=== PATIENT | female | born 1990 | race Caucasian/White ===

== ENCOUNTER 2019-10-02 11:29 | Emergency (ER) | payer SELFPAY ==
[2019-10-02 12:37] LABS: Urine Blood 2+ (NEG); Urine Glucose NEGATIVE (NEG); Urine Protein 1+ (NEG); Urine pH 6.5 (5.0-7.0)
[2019-10-02 12:40] LABS: Absolute Lymphocytes (CBC) 1.6 K/uL (0.7-4.9); Basophils % 0.5 % (0-1.3); Hematocrit 39.4 % (36.0-45.0); Lymphocytes % 16.4 % (15.3-44.8); MPV 7.7 fL (7.6-11.3); RBC Red Blood Cell Count 4.54 M/uL (3.86-4.86)
[2019-10-02] MEDS ORDERED: NA CHLORIDE 0.9% 1,000 ML ONE (12:40)
[2019-10-02] MEDS ORDERED: ONDANSETRON 4 MG/2 ML VIAL ONE (12:40)
[2019-10-02] MEDS ORDERED: KETOROLAC 30 MG/ML INJ ONE (12:40)
[2019-10-02 12:44] LABS: Urine Bacteria 20-50 /HPF (<20); Urine Culture Reflex Order REFLEXED
--- NOTE | 2019-10-02 12:59 | RAD REPORT ---
EXAM DESCRIPTION: CT - Stone Protocol - 10/02/2019 12:47 pm CLINICAL HISTORY: Abdominal pain. COMPARISON: None. TECHNIQUE: Computed axial tomography of the abdomen pelvis was obtained without oral or IV contrast. Lack of IV and oral contrast limits evaluation of solid organs, bowel, and vessels. Coronal reformat amrit images were obtained and reviewed. All CT scans are performed using dose optimization technique as appropriate and may include automated exposure control or mA/KV adjustment according to patient size. FINDINGS: Small bilateral renal calculi. Moderate right hydronephrosis. 6 millimeter calculus mid ri ght ureter Hounsfield unit 1461 No left hydronephrosis The liver, spleen, pancreas and adrenals appear grossly normal There is no evidence of diverticulitis. IMPRESSION: 6 millimeter calculus mid right ureter resulting in moderate left hydronephrosis
[2019-10-02 13:06] LABS: Albumin 4.3 g/dL (3.4-5.0); Bilirubin Direct 0.1 mg/dL (0-0.2); Bilirubin Total 0.4 mg/dL (0.2-1.0); Potassium 3.9 mmol/L (3.5-5.1)
--- NOTE | 2019-10-02 13:58 | EDPHYS ---
Physician Documentation [facility] Name: Janine Patrick Age: 29 yrs Sex: Female : 1990 Arrival Date: 10/02/2019 Time: 11:30 Bed 30 Private MD: ED Physician Luis Armando Briggs HPI: 10/02 12:10 This 29 yrs old Female presents to ER via Ambulatory with complaints of cp Possible Kidney Stone. 12:10 The patient complains of pain in the right flank. cp 12:10 The pain radiates to the right side abdomen. Onset: The symptoms/episode began/occurred cp this morning. Associated signs and symptoms: Pertinent positives: nausea, Pertinent negatives: diarrhea, fever, pain radiating to the lower extremities, vomiting. The patient has experienced similar episodes in the past, today's symptoms are similar, to when the patient was apparently diagnosed with kidney stone. 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 - Coronavirus screen:: The patient has NOT traveled to [place], [place], or [place] in the past 14 days. The patient has NOT had contact with known/suspected case of Coronavirus?. - Social history:: Smoking status: Patient denies any tobacco usage or history of. Patient/guardian denies using alcohol, street drugs. - Ebola Screening: : Patient negative for fever greater than or equal to 101.5 degrees Fahrenheit, and additional compatible Ebola Virus Disease symptoms Patient denies exposure to infectious person Patient denies travel to an Ebola-affected area in the 21 days before illness onset No symptoms or risks identified at this time. ROS: 12:15 Constitutional: Negative for body aches, chills, fever, poor PO intake. cp 12:15 Eyes: Negative for injury, pain, redness, and discharge. cp 12:15 ENT: Negative for drainage from ear(s), ear pain, sore throat, difficulty swallowing, difficulty handling secretions. 12:15 Cardiovascular: Negative for chest pain, palpitations. 12:15 Respiratory: Negative for cough, shortness of breath, wheezing. 12:15 Abdomen/GI: Positive for abdominal pain, nausea, Negative for vomiting, diarrhea, constipation. 12:15 Back: Positive for flank pain, on the right. 12:15 All other systems are negative. Exam: 12:20 Constitutional: The patient appears in no acute distress, alert, awake, non-toxic, well cp developed, well nourished, uncomfortable. 12:20 Head/Face: Normocephalic, atraumatic. cp 12:20 Eyes: Periorbital structures: appear normal, Conjunctiva: normal, no exudate, no injection, Sclera: no appreciated abnormality, Lids and lashes: appear normal, bilaterally. 12:20 ENT: External ear(s): are unremarkable, Nose: is normal, Mouth: Lips: moist, Oral mucosa: moist, Posterior pharynx: Airway: no evidence of obstruction, patent. 12:20 Chest/axilla: Inspection: normal, Palpation: is normal, no crepitus, no tenderness. 12:20 Cardiovascular: Rate: normal, Rhythm: regular. 12:20 Respiratory: the patient does not display signs of respiratory distress, Respirations: normal, labored breathing, is not present, Breath sounds: are clear throughout, no decreased breath sounds, no stridor, no wheezing. 12:20 Abdomen/GI: Inspection: abdomen appears normal, Bowel sounds: active, all quadrants, Palpation: soft, in all quadrants, moderate abdominal tenderness, in the posterior aspect of right lateral abdomen, anterior aspect of right lateral abdomen and right lower quadrant. 12:20 Back: pain, that is moderate, of the right low back, ROM is painful. 12:20 Skin: no rash present. Vital Signs: 11:47 BP 160 / 110; Pulse 87; Resp 16; Temp 98.6; Pulse Ox 99% on R/A; Weight 61.23 kg; ch Height 5 ft. (152.40 cm); Pain 8/10; 12:15 BP 130 / 84; Pulse 82; Resp 18; Pulse Ox 100% on R/A; vc 13:15 BP 146 / 111; Pulse 78; Resp 15; Pulse Ox 100% ; vc 15:00 BP 132 / 94; Pulse 78; Resp 15; Pulse Ox 100% ; Pain 0/10; vc 11:47 Body Mass Index 26.37 (61.23 kg, 152.40 cm) ch MDM: 12:09 Patient medically screened. 13:56 Data reviewed: vital signs, nurses notes, lab test result(s), radiologic studies, CT cp scan. 13:56 Counseling: I had a detailed discussion with the patient and/or guardian regarding: the cp historical points, exam findings, and any diagnostic results supporting the discharge/admit diagnosis, lab results, radiology results, the need for outpatient follow up, a urologist, to return to the emergency department if symptoms worsen or persist or if there are any questions or concerns that arise at home. Response to treatment: the patient's symptoms have markedly improved after treatment, VSS. Pain improved with meds. Will discharge to home for continued monitoring. 10/02 12:03 Order name: Urine Dipstick--Ancillary (enter results) 10/02 12:03 Order name: Urine --Ancillary (enter results) 10/02 12:11 Order name: Basic Metabolic Panel 10/02 12:11 Order name: CBC with Diff 10/02 12:11 Order name: Creatinine for Radiology 10/02 12:11 Order name: Hepatic Function cp 10/02 12:11 Order name: Lipase 10/02 12:11 Order name: Urine Microscopic Only 10/02 12:37 Order name: Urine --Ancillary; Complete Time: 13:19 EDMS 10/02 12:37 Order name: Urine Dipstick-Ancillary; Complete Time: 13:19 EDMS 10/02 13:19 Interpretation: Normal except: UBLD 2+; UPROT 1+. 10/02 12:43 Order name: CBC with Automated Diff; Complete Time: 13:19 EDMS 10/02 12:44 Order name: Urine Microscopic Only; Complete Time: 13:19 EDMS 10/02 13:20 Interpretation: Normal except: URBC 5-10; UBACT 20-50; SQEPI 10-20. 10/02 13:07 Order name: Basic Metabolic Panel; Complete Time: 13:19 EDMS 10/02 13:07 Order name: Liver (Hepatic) Function; Complete Time: 13:19 EDMS 10/02 12:11 Order name: IV Saline Lock; Complete Time: 12:31 cp 10/02 12:11 Order name: Labs collected and sent; Complete Time: 12:31 10/02 12:11 Order name: CT Stone Protocol 10/02 13:03 Order name: CT; Complete Time: 13:19 EDMS 10/02 13:07 Order name: Lipase; Complete Time: 13:19 EDMS 10/02 13:12 Order name: Creatinine (Radiology Only); Complete Time: 13:19 EDMS Administered Medications: 12:43 Drug: NS 0.9% 1000 ml Route: IV; Rate: 1 bolus; Site: right antecubital; vc 12:43 Drug: Zofran 4 mg Route: IVP; Site: right antecubital; vc 13:43 Follow up: Response: No adverse reaction; Nausea is decreased vc 12:43 Drug: TORadol - Ketorolac 15 mg Route: IVP; Site: right antecubital; vc 13:43 Follow up: Response: No adverse reaction; Pain is decreased vc 14:42 Drug: Rocephin 1 grams Route: IV; Rate: calculated rate; Site: left antecubital; vc 14:50 Follow up: Response: No adverse reaction; IV Status: Completed infusion vc 14:51 Drug: Magnesium Sulfate 1 grams Route: IVPB; Infused Over: 1 hrs; Site: right vc antecubital; 15:50 Follow up: IV Status: Completed infusion vc 14:52 Drug: Flomax 0.4 mg Route: PO; vc 15:57 Follow up: Response: No adverse reaction vc Disposition: 17:57 Co-signature as Attending Physician, Luis Armando Briggs MD I agree with the assessment and kdr plan of care. Disposition: 10/02/19 13:57 Discharged to Home. Impression: Calculus of ureter - right. - Condition is Stable. - Discharge Instructions: Kidney Stones, Renal Colic. - Prescriptions for Tylenol- Codeine #3 300-30 mg Oral Tablet - take 2 tablets by ORAL route every 6 hours As needed; 20 tablet. Zofran 4 mg Oral Tablet - take 1 tablet by ORAL route every 12 hours As needed; 20 tablet. Flomax 0.4 mg Oral Capsule, Sust. Release 24 hr - take 1 capsule by ORAL route once daily As needed 1/2 hour following the same meal each day; 5 capsule. Cipro 500 mg Oral Tablet - take 1 tablet by ORAL route every 12 hours for 7 days; 14 tablet. - Medication Reconciliation Form, Thank You Letter, Antibiotic Education, Prescription Opioid Use, Work release form form. - Follow up: Robby Montemayor MD; When: 1 - 2 days; Reason: pain and symptoms continue. Follow up: Robby Montemayor MD; When: 1 - 2 days; Reason: pain and symptoms continue. - Problem is new. - Symptoms have improved. Signatures: Dispatcher [employer] EDMS Ana Moseley RN RN Luis Armando Briggs MD MD [facility] Mina Luis PA PA cp Mireya Penn RN RN vc Corrections: (The following items were deleted from the chart) 15:55 13:57 10/02/2019 13:57 Discharged to Home. Impression: Calculus of ureter - right. vc Condition is Stable. Forms are Medication Reconciliation Form, Thank You Letter, Antibiotic Education, Prescription Opioid Use. Follow up: Robby Montemayor; When: 1 - 2 days; Reason: pain and symptoms continue. Problem is new. Symptoms have improved. cp
--- NOTE | 2019-10-02 13:58 | ER ---
Nurse's Notes [facility] Name: Janine Patrick Age: 29 yrs Sex: Female : 1990 Arrival Date: 10/02/2019 Time: 11:30 Bed 30 Private MD: Diagnosis: Calculus of ureter-right Presentation: 10/02 11:46 Presenting complaint: Patient states: kidney stone symptoms like my others, started ch this morning. pain to R flank, nausea vomiting. Transition of care: patient was not received from another setting of care. Onset of symptoms was October 02, 2019 at 06:00. Risk Assessment: Do you want to hurt yourself or someone else? Patient reports no desire to harm self or others. Initial Sepsis Screen: Does the patient meet any 2 criteria? No. Patient's initial sepsis screen is negative. Does the patient have a suspected source of infection? No. Patient's initial sepsis screen is negative. Care prior to arrival: None. 11:46 Method Of Arrival: Ambulatory 11:46 Acuity: IMANI 3 Triage Assessment: 11:47 General: Appears Behavior is calm, cooperative, appropriate for age. Pain: Complains of pain in right flank Pain currently is 9 out of 10 on a pain scale. Neuro: No deficits noted. GI: Reports nausea, vomiting. : Reports flank pain. 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 - Coronavirus screen:: The patient has NOT traveled to [place], [place], or [place] in the past 14 days. The patient has NOT had contact with known/suspected case of Coronavirus?. - Social history:: Smoking status: Patient denies any tobacco usage or history of. Patient/guardian denies using alcohol, street drugs. - Ebola Screening: : Patient negative for fever greater than or equal to 101.5 degrees Fahrenheit, and additional compatible Ebola Virus Disease symptoms Patient denies exposure to infectious person Patient denies travel to an Ebola-affected area in the 21 days before illness onset No symptoms or risks identified at this time. Screenin:30 Abuse screen: Denies threats or abuse. Nutritional screening: No deficits noted. vc Tuberculosis screening: No symptoms or risk factors identified. Fall Risk None identified. Assessment: 11:50 GI: Bowel sounds present X 4 quads. Abd is soft and non tender. : Reports pain in vc right flank(s). 11:51 General: Appears in no apparent distress. comfortable, Behavior is calm, cooperative, vc appropriate for age. Neuro: Level of Consciousness is awake, alert, obeys commands, Oriented to person, place, time, situation. Cardiovascular: Patient's skin is warm and dry. Respiratory: Airway is patent Respiratory effort is even, unlabored. GI:. EENT: No signs and/or symptoms were reported regarding the EENT system. Derm: Skin is intact, is healthy with good turgor, Skin temperature is warm. Musculoskeletal: Circulation, motion, and sensation intact. Range of motion: intact in all extremities. 11:51 Pain: Complains of pain in back and right flank Pain currently is 8 out of 10 on a pain vc scale. Pain began suddenly. 13:00 Reassessment: Patient and/or family updated on plan of care and expected duration. Pain vc level reassessed. Patient is alert, oriented x 3, equal unlabored respirations, skin warm/dry/pink. 14:00 Reassessment: Patient is alert, oriented x 3, equal unlabored respirations, skin vc warm/dry/pink. 15:00 Reassessment: Patient denies pain at this time. Patient states feeling better. vc 15:08 Reassessment: Magnesium infusing. vc 15:30 Reassessment: Patient and/or family updated on plan of care and expected duration. Pain vc level reassessed. Patient is alert, oriented x 3, equal unlabored respirations, skin warm/dry/pink. Patient denies pain at this time. Patient states feeling better. Neuro: Level of Consciousness is awake, alert, obeys commands, Oriented to person, place, time, situation. Vital Signs: 11:47 BP 160 / 110; Pulse 87; Resp 16; Temp 98.6; Pulse Ox 99% on R/A; Weight 61.23 kg; ch Height 5 ft. (152.40 cm); Pain 8/10; 12:15 BP 130 / 84; Pulse 82; Resp 18; Pulse Ox 100% on R/A; vc 13:15 BP 146 / 111; Pulse 78; Resp 15; Pulse Ox 100% ; vc 15:00 BP 132 / 94; Pulse 78; Resp 15; Pulse Ox 100% ; Pain 0/10; vc 11:47 Body Mass Index 26.37 (61.23 kg, 152.40 cm) ED Course: 11:30 Patient arrived in ED. as 11:47 Triage completed. ch 11:47 Arm band placed on left wrist. Patient placed in an exam room, on a stretcher. ch 11:50 Mireya Penn, RN is Primary Nurse. vc 11:50 Patient has correct armband on for positive identification. vc 12:00 Mina Luis PA is PHCP. cp 12:00 Luis Armando Briggs MD is Attending Physician. cp 12:10 Urine --Ancillary (enter results) Sent. vc 12:10 Urine Dipstick--Ancillary (enter results) Sent. vc 12:34 Initial lab(s) drawn, by wi, sent to lab. Urine collected: clean catch specimen, clear, jp3 darnell colored. Inserted saline lock: 22 gauge in right antecubital area, using aseptic technique. Blood collected. Patient maintains SpO2 saturation greater than 95% on room air. 12:35 Urine Microscopic Only Sent. jp3 12:35 Basic Metabolic Panel Sent. jp3 12:35 CBC with Diff Sent. jp3 12:35 Creatinine for Radiology Sent. jp3 12:35 Hepatic Function Sent. jp3 12:35 Lipase Sent. jp3 13:56 Robby Montemayor MD is Referral Physician. cp 13:56 Referral Physician role handed off by Robby Montemayor MD cp 13:57 Robby Montemayor MD is Referral Physician. cp 15:28 No provider procedures requiring assistance completed. vc 15:55 IV discontinued, intact, bleeding controlled, No redness/swelling at site. Pressure vc dressing applied. 16:00 CT Stone Protocol Sent. vc Administered Medications: 12:43 Drug: NS 0.9% 1000 ml Route: IV; Rate: 1 bolus; Site: right antecubital; vc 12:43 Drug: Zofran 4 mg Route: IVP; Site: right antecubital; vc 13:43 Follow up: Response: No adverse reaction; Nausea is decreased vc 12:43 Drug: TORadol - Ketorolac 15 mg Route: IVP; Site: right antecubital; vc 13:43 Follow up: Response: No adverse reaction; Pain is decreased vc 14:42 Drug: Rocephin 1 grams Route: IV; Rate: calculated rate; Site: left antecubital; vc 14:50 Follow up: Response: No adverse reaction; IV Status: Completed infusion vc 14:51 Drug: Magnesium Sulfate 1 grams Route: IVPB; Infused Over: 1 hrs; Site: right vc antecubital; 15:50 Follow up: IV Status: Completed infusion vc 14:52 Drug: Flomax 0.4 mg Route: PO; vc 15:57 Follow up: Response: No adverse reaction vc Outcome: 13:57 Discharge ordered by . cp 15:54 Discharged to home ambulatory. vc 15:54 Condition: improved 15:54 Discharge instructions given to patient, Instructed on discharge instructions, follow up and referral plans. no driving heavy equipment, medication usage, Demonstrated understanding of instructions, follow-up care, medications, Prescriptions given X 4. 15:55 Patient left the ED. vc Signatures: Ana Moseley, RN RN Linnette Huynh Corey, PA PA cp Pisarski, Jacob jp3 Mireya Penn RN RN vc
[2019-10-02] MEDS ORDERED: CEFTRIAXONE/SWI 1gm 1 GM/10 ML SYR ONE (14:39)
[2019-10-02] MEDS ORDERED: TAMSULOSIN 0.4 MG SR CAP ONE (14:39)
[2019-10-02] MEDS ORDERED: MAGNESIUM SULFATE 1 gm IVPB 1 GM/100 ML BAG IV ONE (14:39)
[2019-10-02 16:03] VITALS: TEMP 98.6
[2019-10-02 16:04] VITALS: O2SAT 100
[2019-10-02 16:06] VITALS: BP 146/111
== END 2019-10-02 15:55 | disposition home or self-care (01) ==
LOC: ER 11:29
DX: N20.1 Calculus of ureter (principal); Z87.442 Personal history of urinary calculi
CPT/HCPCS: 36415; 74176; 76377; 80048; 80076; 81003; 81015; 81025; 83690; 85025; 87086; 87088; 96365; 96375; 99284; J0696; J2405; J3475; J7030

== ENCOUNTER 2019-10-04 20:49 | Emergency (ER) | payer SELFPAY ==
[2019-10-04] MEDS ORDERED: KETOROLAC 30 MG/ML INJ ONE (21:36)
[2019-10-04 21:43] LABS: Urine Blood TRACE (NEG); Urine Glucose NEGATIVE (NEG); Urine Protein NEGATIVE (NEG); Urine pH 7.5 (5.0-7.0)
[2019-10-04 21:49] LABS: Urine Bacteria <20 /HPF (<20); Urine Culture Reflex Order NOT NEEDED
[2019-10-04 22:10] LABS: ALT/SGPT 23 U/L (12-78); AST/SGOT 15 U/L (15-37); Albumin 3.8 g/dL (3.4-5.0); Alkaline Phosphatase 45 U/L (45-117); BUN Blood Urea Nitrogen 7 mg/dL (7-18); Bicarbonate 26 mmol/L (21-32); Bilirubin Direct < 0.1 mg/dL (0-0.2); Bilirubin Total 0.2 mg/dL (0.2-1.0); Glucose Level 105 mg/dL (74-106); Lipase 71 U/L (73-393); Potassium 3.6 mmol/L (3.5-5.1); Protein, Total 7.4 g/dL (6.4-8.2); Sodium Level 140 mmol/L (136-145)
[2019-10-04 22:15] LABS: Absolute Lymphocytes (CBC) 2.4 K/uL (0.7-4.9); Basophils % 0.3 % (0-1.3); Hematocrit 37.8 % (36.0-45.0); Lymphocytes % 18.7 % (15.3-44.8); MPV 8.2 fL (7.6-11.3); RBC Red Blood Cell Count 4.28 M/uL (3.86-4.86)
[2019-10-04] MEDS ORDERED: NA CHLORIDE 0.9% 1,000 ML ONE (22:17)
--- NOTE | 2019-10-05 00:07 | EDPHYS ---
Physician Documentation [facility] Name: Janine Patrick Age: 29 yrs Sex: Female : 1990 Arrival Date: 10/04/2019 Time: 20:50 Bed 2 Private MD: ED Physician Marshall López HPI: 10/05 00:42 This 29 yrs old Female presents to ER via Ambulatory with complaints of Back tw4 Pain. 00:42 The patient presents with pain that is chronic. The symptoms are located in the right tw4 mid back. Onset: The symptoms/episode began/occurred 2 day(s) ago. The pain does not radiate. Associated signs and symptoms: The patient has no apparent associated signs or symptoms. The patient has not experienced similar symptoms in the past. 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 - Coronavirus screen:: The patient has NOT traveled to [place], [place], or [place] in the past 14 days. The patient has NOT had contact with known/suspected case of Coronavirus?. - Social history:: Smoking status: Patient denies any tobacco usage or history of. - Ebola Screening: : Patient negative for fever greater than or equal to 101.5 degrees Fahrenheit, and additional compatible Ebola Virus Disease symptoms Patient denies exposure to infectious person Patient denies travel to an Ebola-affected area in the 21 days before illness onset No symptoms or risks identified at this time. ROS: 10/05 00:42 Constitutional: Negative for fever, chills, and weight loss. tw4 Back: Positive for flank pain. Exam: 00:42 Constitutional: This is a well developed, well nourished patient who is awake, alert, tw4 and in no acute distress. Head/Face: Normocephalic, atraumatic. Chest/axilla: Normal chest wall appearance and motion. Nontender with no deformity. No lesions are appreciated. Cardiovascular: Regular rate and rhythm with a normal S1 and S2. No gallops, murmurs, or rubs. Normal PMI, no JVD. No pulse deficits. Respiratory: Lungs have equal breath sounds bilaterally, clear to auscultation and percussion. No rales, rhonchi or wheezes noted. No increased work of breathing, no retractions or nasal flaring. Abdomen/GI: Soft, non-tender, with normal bowel sounds. No distension or tympany. No guarding or rebound. No evidence of tenderness throughout. 00:42 MS/ Extremity: Pulses equal, no cyanosis. Neurovascular intact. Full, normal range of motion. Neuro: Awake and alert, GCS 15, oriented to person, place, time, and situation. Cranial nerves II-XII grossly intact. Motor strength 5/5 in all extremities. Sensory grossly intact. Cerebellar exam normal. Normal gait. 00:42 Back: pain, that is mild, ROM is normal, normal spinal alignment noted. Vital Signs: 10/04 21:12 BP 157 / 110; Pulse 107; Resp 20 S; Temp 98.2(TE); Pulse Ox 99% on R/A; Weight 61.23 kg ca1 (R); Height 5 ft. (152.40 cm) (R); Pain 8/10; 22:15 BP 132 / 96; Pulse 90; Resp 16; Pulse Ox 100% on R/A; Pain 5/10; lp1 10/05 00:00 BP 134 / 94; Pulse 88; Resp 16; Pulse Ox 98% on R/A; Pain 5/10; lp1 10/04 21:12 Body Mass Index 26.37 (61.23 kg, 152.40 cm) ca1 MDM: 10/04 21:14 Patient medically screened. tw4 10/05 00:42 Differential diagnosis: Cholelithiasis Peptic Ulcer Ureterolithiasis. Data tw4 reviewed: vital signs, nurses notes. Data interpreted: Pulse oximetry: Interpretation: normal. Medication response: morphine relieved the patient's pain. Symptoms have resolved. Response to treatment: and as a result, I will discharge patient. Special discussion: I discussed with the patient/guardian in detail that at this point there is no indication for admission to the hospital. It is understood, however, that if the symptoms persist or worsen the patient needs to return immediately for re-evaluation. 00:56 Counseling: I had a detailed discussion with the patient and/or guardian regarding: the tw4 historical points, exam findings, and any diagnostic results supporting the discharge/admit diagnosis, radiology results. ED course: Pt states that her pain is minimal . CT scan reveals similar findings of right sided hydronephrosis with mid ureteral stone. 10/04 21:19 Order name: Urine Microscopic Only [facility] 10/04 21:26 Order name: Basic Metabolic Panel [facility] 10/04 21:26 Order name: CBC with Diff [facility] 10/04 21:26 Order name: Creatinine for Radiology [facility] 10/04 21:26 Order name: Hepatic Function [facility] 10/04 21:26 Order name: Lipase [facility] 10/04 21:19 Order name: Urine Dipstick-Ancillary (obtain specimen); Complete Time: 21:28 [facility] 10/04 21:26 Order name: CT Stone Protocol [facility] 10/04 21:31 Order name: Urine Dipstick--Ancillary (enter results) [facility] 10/04 21:31 Order name: Urine --Ancillary (enter results) [facility] 10/04 21:19 Order name: Urine Test (obtain specimen); Complete Time: 21:28 [facility] 10/04 21:26 Order name: IV Saline Lock; Complete Time: 21:43 [facility] 10/04 21:26 Order name: Labs collected and sent; Complete Time: 21:43 [facility] Administered Medications: 10/04 22:20 Drug: NS 0.9% 1000 ml Route: IV; Rate: 1000 ml; Site: right antecubital; lp1 23:32 Follow up: IV Status: Completed infusion; IV Intake: 1000ml lp1 22:53 Drug: TORadol 30 mg Route: IVP; Site: right antecubital; 23:33 Follow up: Response: Marked relief of symptoms; Pain is decreased lp1 10/05 00:15 Drug: morphine 4 mg Route: IVP; Site: right antecubital; lp1 00:48 Follow up: Response: Marked relief of symptoms; Pain is decreased; RASS: Alert and Calm lp1 (0) 00:15 Drug: Zofran 4 mg Route: IVP; Site: right antecubital; lp1 00:48 Follow up: Response: No adverse reaction lp1 Disposition: 10/05/19 00:04 Discharged to Home. Impression: Calculus of ureter. - Condition is Stable. - Discharge Instructions: Renal Colic, Kidney Stones, [id number]. - Prescriptions for Ibuprofen 800 mg Oral Tablet - take 1 tablet by ORAL route every 8 hours As needed take with food; 30 tablet. Flomax 0.4 mg Oral Capsule, Sust. Release 24 hr - take 1 capsule by ORAL route once daily 1/2 hour following the same meal each day; 30 capsule. Tramadol 50 mg Oral Tablet - take 1 tablet by ORAL route every 8 hours as needed; 12 tablet. - Medication Reconciliation Form, Thank You Letter, Antibiotic Education, Prescription Opioid Use form. - Follow up: Robby Montemayor MD; When: Upon discharge from the Emergency Department; Reason: Recheck today's complaints, Continuance of care, Re-evaluation by your physician. - Problem is new. - Symptoms have improved. Signatures: Dispatcher [employer] EDMS Ludy Frye RN RN lp1 Geraldo Israel Terrence, MD MD tw4 Alana Jauregui RN RN ca1 Corrections: (The following items were deleted from the chart) 01:02 00:04 10/05/2019 00:04 Discharged to Home. Impression: Calculus of ureter. Condition is lp1 Stable. Forms are Medication Reconciliation Form, Thank You Letter, Antibiotic Education, Prescription Opioid Use. Follow up: Robby Montemayor; When: Upon discharge from the Emergency Department; Reason: Recheck today's complaints, Continuance of care, Re-evaluation by your physician. Problem is new. Symptoms have improved. tw4
--- NOTE | 2019-10-05 00:07 | ER ---
Nurse's Notes [facility] Name: Janine Patrick Age: 29 yrs Sex: Female : 1990 Arrival Date: 10/04/2019 Time: 20:50 Bed 2 Private MD: Diagnosis: Calculus of ureter Presentation: 10/04 21:08 Presenting complaint: Patient states: Wednesday was here for kidney stone. Did CT, showed ca1 a 6mm stone on the R side. Now, I am still in severe pain. I take the prescribed Tylenol#3s that they gave but I still have no relief. I believe I still have not passed it yet. Transition of care: patient was not received from another setting of care. Onset of symptoms was October 04, 2019. Risk Assessment: Do you want to hurt yourself or someone else? Patient reports no desire to harm self or others. Initial Sepsis Screen: Does the patient meet any 2 criteria? No. Patient's initial sepsis screen is negative. Does the patient have a suspected source of infection? No. Patient's initial sepsis screen is negative. Care prior to arrival: Medication(s) given: Tylenol #3 at 4pm. 21:08 Method Of Arrival: Ambulatory ca1 21:08 Acuity: IMANI 3 ca1 Triage Assessment: 21:12 General: Appears in no apparent distress. uncomfortable, Behavior is crying. Pain: ca1 Complains of pain in right low back Pain currently is 8 out of 10 on a pain scale. Is continuous. Musculoskeletal: Circulation, motion, and sensation intact. Capillary refill < 3 seconds, Range of motion: intact in all extremities. 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 - Coronavirus screen:: The patient has NOT traveled to [place], [place], or [place] in the past 14 days. The patient has NOT had contact with known/suspected case of Coronavirus?. - Social history:: Smoking status: Patient denies any tobacco usage or history of. - Ebola Screening: : Patient negative for fever greater than or equal to 101.5 degrees Fahrenheit, and additional compatible Ebola Virus Disease symptoms Patient denies exposure to infectious person Patient denies travel to an Ebola-affected area in the 21 days before illness onset No symptoms or risks identified at this time. Screenin:43 Abuse screen: Denies threats or abuse. Denies injuries from another. Nutritional lp1 screening: No deficits noted. Tuberculosis screening: No symptoms or risk factors identified. Fall Risk None identified. Assessment: 21:20 General: Appears uncomfortable, Behavior is appropriate for age. Pain: Complains of lp1 pain in right low back Pain currently is 8 out of 10 on a pain scale. Quality of pain is described as sharp, stabbing. Neuro: Level of Consciousness is awake, alert, obeys commands, Oriented to person, place, time, situation, Gait is steady. Cardiovascular: Patient's skin is warm and dry. Respiratory: Respiratory effort is even, unlabored. GI: Abdomen is non-distended. : Reports pain in right flank(s). EENT: No signs and/or symptoms were reported regarding the EENT system. Derm: Skin is pink, warm \T\ dry. Musculoskeletal: No deficits noted. 21:40 Reassessment: Patient appears in no apparent distress at this time. Patient states pain lp1 tolerable at this time; Holding Toradol. 22:24 Reassessment: Patient appears in no apparent distress at this time. Patient is alert, lp1 oriented x 3, equal unlabored respirations, skin warm/dry/pink. Patient states feeling better. 23:32 Reassessment: Patient appears in no apparent distress at this time. Patient is alert, lp1 oriented x 3, equal unlabored respirations, skin warm/dry/pink. Patient states feeling better. Patient states symptoms have improved. 10/05 00:00 Reassessment: Patient appears in no apparent distress at this time. Patient is alert, lp1 oriented x 3, equal unlabored respirations, skin warm/dry/pink. Patient states tolerable pain at this time; aware of pending discharge Patient states feeling better. 00:47 Reassessment: Patient waiting for significant other to return for ride home. lp1 Vital Signs: 10/04 21:12 BP 157 / 110; Pulse 107; Resp 20 S; Temp 98.2(TE); Pulse Ox 99% on R/A; Weight 61.23 kg ca1 (R); Height 5 ft. (152.40 cm) (R); Pain 8/10; 22:15 BP 132 / 96; Pulse 90; Resp 16; Pulse Ox 100% on R/A; Pain 5/10; lp1 02/ 00:00 BP 134 / 94; Pulse 88; Resp 16; Pulse Ox 98% on R/A; Pain 5/10; lp1 10/04 21:12 Body Mass Index 26.37 (61.23 kg, 152.40 cm) ca1 ED Course: 10/04 20:50 Patient arrived in ED. ag3 21:11 Triage completed. ca1 21:12 Arm band placed on right wrist. ca1 21:14 Marshall López MD is Attending Physician. tw4 21:16 Ludy Frye, MARITZA is Primary Nurse. lp1 21:20 Patient has correct armband on for positive identification. Placed in gown. lp1 21:40 Initial lab(s) drawn, by me, sent to lab. Inserted saline lock: 20 gauge in right lp1 antecubital area, using aseptic technique. Blood collected. 21:59 CT Stone Protocol In Process Unspecified. EDMS 10/05 00:03 Robby Montemayor MD is Referral Physician. tw4 00:32 No provider procedures requiring assistance completed. IV discontinued, No lp1 redness/swelling at site. Pressure dressing applied. Administered Medications: 10/04 22:20 Drug: NS 0.9% 1000 ml Route: IV; Rate: 1000 ml; Site: right antecubital; lp1 23:32 Follow up: IV Status: Completed infusion; IV Intake: 1000ml lp1 22:53 Drug: TORadol 30 mg Route: IVP; Site: right antecubital; 23:33 Follow up: Response: Marked relief of symptoms; Pain is decreased lp1 10/05 00:15 Drug: morphine 4 mg Route: IVP; Site: right antecubital; lp1 00:48 Follow up: Response: Marked relief of symptoms; Pain is decreased; RASS: Alert and Calm lp1 (0) 00:15 Drug: Zofran 4 mg Route: IVP; Site: right antecubital; lp1 00:48 Follow up: Response: No adverse reaction lp1 Intake: 10/04 23:32 IV: 1000ml; Total: 1000ml. lp1 Outcome: 10/05 00:04 Discharge ordered by . tw4 00:32 Discharged to home via wheelchair, with significant other. lp1 00:32 Condition: good 00:32 Discharge instructions given to patient, Instructed on discharge instructions, follow up and referral plans. medication usage, Demonstrated understanding of instructions, follow-up care, medications, Prescriptions given X 3. 01:02 Patient left the ED. lp1 Signatures: Dispatcher [employer] EDLudy Balderrama, RN RN lp1 Geraldo Israel Terrence, MD MD tw4 Esthela Weeks ag3 Alana Jauregui RN RN ca1
[2019-10-05] MEDS ORDERED: ONDANSETRON 4 MG/2 ML VIAL ONE (00:10)
[2019-10-05] MEDS ORDERED: MORPHINE 4 MG/ML SYR ONE (00:10)
[2019-10-05 02:08] VITALS: TEMP 98.2
[2019-10-05 02:11] VITALS: BP 134/94; O2SAT 98
--- NOTE | 2019-10-05 09:36 | RAD REPORT ---
EXAM DESCRIPTION: CT - Stone Protocol - 10/05/2019 3:04 am CLINICAL HISTORY: Right flank pain. Assess for obstructive uropathy. TECHNIQUE: CT scan of the abdomen and pelvis was performed without intravenous contrast. Stone protocol was utilized. 3.0 mm axial images were obtained along with coronal and sagittal reform atted images. DOSE OPTIMIZATION: This facility uses dose optimization techniques as appropriate to perform exams, including at least one of the following techniques: 1. Automated exposure control. 2. Adjustment of the mA and/or kV according to patient size (this includes techniques or standardized protocols for targeted exams where dose is matched to the indication/reason for exam, i.e. extremiti es or head). 3. Use of iterative reconstructive technique. COMPARISON: 10/02/2011. FINDINGS: Lung Bases: Normal. Liver: Normal. Spleen: Normal. Pancreas: Normal. Gallbladder: Normal. Adrenal Glands: Normal. Right Kidney: There is moderately severe right hydroureteronephrosis secondary to an obstructing ston e in the mid ureter at the L4 vertebral body level. This is stable from prior study and measures 0.6 x 0.6 cm. There are multiple small nonobstructing medullary stones in the right kidney. The largest is in the u pper pole measuring 0.2 cm. Left Kidney: There are 3 small nonobstructing medullary stones. The largest measures 0.3 x 0.2 cm. Urinary Bladder: Normal. Retroperitoneal Structures: Normal. Bowel Survey: There is a large amount residual stool identified throughout the colon. The appendix is unremarkable. The distal ileum is unremarkable. Uterus and Adnexa: Normal. Peritoneal Cavity: There is a trace amount of free fluid in the posterior cul-de-sac on the right. Mesenteric Structures: Normal. Abdominal Wall: No hernia. Bony Structures: No suspicious lesions. IMPRESSION: 1. Moderately severe right hydroureteronephrosis secondary to an obstructing stone in th e mid right ureter, stable. 2. Bilateral nephrolithiasis. 3. Large amount of residual stool throughout the colon. 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 The interpreting radiologist is f ully responsible for the content of the report.
== END 2019-10-05 01:02 | disposition home or self-care (01) ==
LOC: ER 20:49
DX: N20.1 Calculus of ureter (principal)
CPT/HCPCS: 36415; 74176; 76377; 80048; 80076; 81003; 81015; 81025; 83690; 85025; 96361; 96374; 96375; 99284; J2405; J7030